=== PATIENT | male | born 1960 | race Caucasian/White ===

== ENCOUNTER 2016-08-04 12:40 | Inpatient (IN) | payer MEDICARE, OTHER ==
[2016-08-04] MEDS ORDERED: NS 0.9% 1000 ML* 1,000 ML IV ONE ×2 (13:24→15:32)
--- NOTE | 2016-08-04 14:04 | RAD ---
Indication: Confusion, pneumonia and CHF. Single frontal view of the chest performed at 1335 hours was reviewed. Comparison is made with previous exam dated October 27, 2015. Cardiomegaly is noted. No mediastinal shift is noted. Bibasilar atelectasis is noted. IMPRESSION: CARDIOMEGALY WITH LEFT BASILAR ATELECTASIS.
[2016-08-04 14:31] LABS: Hematocrit 39 % (42-52); Mean Corpuscular HGB Conc 33 g/dl (31-36); Mean Corpuscular Hemoglobin 31 pg (27-31); Mean Corpuscular Volume 94 fL (80-94); Mean Platelet Volume 8 um3 (7.4-10.4); Red Blood Count 4.14 10^6/ul (4.0-5.4); Red Cell Distribution Width 15 % (10.5-15); White Blood Count 11.5 10^3/ul (3.5-10.8)
[2016-08-04 14:44] LABS: Add Diff/Slide Review? Slide Review Added; Comments Flag Yes
[2016-08-04 14:49] LABS: Albumin 3.4 g/dL (3.2-5.2); BUN/Creatinine Ratio 40.8 (8-20); Calcium 8.8 mg/dL (8.6-10.3); EGFR African American 225.6 (>60); EGFR Non-African American 175.4 (>60); Globulin 2.7 g/dL (2-4); Magnesium 1.8 mg/dL (1.9-2.7); Potassium 4.1 mmol/L (3.5-5.0); Total Bilirubin 0.3 mg/dL (0.2-1.0); Total Protein 6.1 g/dL (6.4-8.9)
[2016-08-04 14:51] LABS: Troponin I 0.02 ng/mL (<0.04)
[2016-08-04 15:07] LABS: TSH (Thyroid Stimulating Horm) 0.84 mcIU/mL (0.34-5.60)
[2016-08-04] MEDS ORDERED: Iodixanol* (CONTRAST) 320 MG/ML 100 ML SDV IV ONE (15:26)
--- NOTE | 2016-08-04 15:46 | RAD ---
Confusion, history of brain tumor. Contrast: Administered 75.0 ml of VISAPAQUE 320 mgi/ml CT of the brain was performed without and with IV contrast. Comparison is made with previous exam dated May 28, 2016. Ventricular structures are midline. There is central and cortical atrophy noted. Encephalomalacia in the right occipital lobe is present unchanged from previous exam due to prior surgery. There is ex vacuo dilatation of the occipital horn of the right lateral ventricle is noted. Again noted at the margin of the right lateral ventricle is a hyperdense lesion which appears to be similar in size and extent to that seen on May 28, 2016. This may represent degenerative dystrophic calcification however mass is not totally excluded. Previously noted enhancement in the right posterior cingulate gyrus is not as prominent as on prior exam. Previously identified enhancement in the mesial temporal lobe is less conspicuous on the current exam. Brainstem and erickson are unremarkable. IMPRESSION: EX VACUO DILATATION OF THE RIGHT OCCIPITAL HORN OF THE LATERAL VENTRICLE. HYPERDENSE LESION IN THE LATERAL MARGIN OF THE LATERAL VENTRICLE IS UNCHANGED AND MAY REPRESENT DYSTROPHIC CALCIFICATIONS. SMALL HYPERDENSE FOCUS IN THE POSTERIOR SYLVIAN FISSURE IS SIMILAR TO THAT SEEN ON PREVIOUS EXAM. THE PREVIOUSLY DESCRIBED ENHANCEMENT OF THE POSTERIOR CINGULATE GYRUS IS NOT PROMINENT ON THE CURRENT EXAM. MILD ENHANCEMENT OF THE MESIAL TEMPORAL LOBE IS NOTED LEFT CONSPICUOUS ON THE CURRENT EXAM THAN ON PRIOR EXAM. OVERALL NO CHANGES NOTED SINCE PREVIOUS EXAM OF MAY 28, 2016.
[2016-08-04 15:56] LABS: Urine Bilirubin Negative (Negative); Urine Glucose 3+(>=500 mg/dL) (Negative); Urine Nitrite Negative (Negative)
--- NOTE | 2016-08-04 16:15 | ED ---
Kary Molina Anna, scribed for Cosme Neumann MD on 08/04/16 at 1333 . Altered Mental Status - HPI Summary HPI Summary: Patient is a 56 y/o male coming to [facility] presenting with intermittent AMS. According to his family, the patient has not slept in several nights. He has been experiencing hallucinations. He has short episodes of confusion at baseline , but over the last few days, he has been confused with only intermittent lucidity. He is experiencing frequent hallucinations. He incorrectly states the date is April 26. He states he is at [facility] and correctly states his birthday. He says he is in the ED today because of a coating. He sees things hanging from the ceiling. He later remembers that the month is July. He has had a BM every day, but his sister reports he appears more bloated than normal. Denies CP, back pain, abd pain, fever, chills, coughing, nausea, diarrhea, trouble with urination. He denies headache but has been grabbing his head. He has been asking to go to the bathroom frequently, but he is not producing more urine than normal. He experiences weakness at baseline, more in the left than the right. LEVEL 5 CAVEAT - UNABLE TO OBTAIN FULL HISTORY DUE TO ALTERED MENTAL STATUS. The patient is being treated with Avastin for his glioblastoma. He has been on Avastin for [address] Melgar has also ordered him Xanax, which he had for four days. No improvement was seen from the Xanax. Last night, he had Xanax at 0330. The patient was yelling out his parents names. He takes Lovenox at night. He has been on steroids for three years. He does not smoke. He has steroid-induced DM. He has had elevated HTN recently according to his visiting nurse. Denies HLD. No history of CVA or [place]. Hx is significant for PE and diverticulitis, both 10/2015. - History Of Current Complaint Chief Complaint: EDAltMentalStatus Stated Complaint: CONFUSED Hx Obtained From: Patient, Family/Legal Compliance Officer - Accompanied by family - Allergies/Home Medications Allergies/Adverse Reactions: Allergies Allergy/AdvReac Type Severity Reaction Status Date / Time No Known Allergies Allergy Verified 08/04/16 12:51 PMH/Surg Hx/FS Hx/Imm Hx Endocrine/Hematology History: Reports: Hx Diabetes - STEROID INDUCED Cardiovascular History: Denies: Hx Congestive Heart Failure, Hx Hypertension Respiratory History: Reports: Hx Pulmonary Embolism GI History: Reports: Hx Diverticulosis History: Reports: Hx Kidney Stones - 12 years ago Denies: Hx Dialysis, Hx Renal Disease Sensory History: Reports: Hx Contacts or Glasses, Hx Eye Injury - Foreign metallic object in left eye sockets, Hx Vision Problem Opthamlomology History: Reports: Hx Contacts or Glasses, Hx Eye Injury - Foreign metallic object in left eye sockets, Hx Vision Problem - Cancer History Cancer Type, Location and Year: GLIOBLASTOMA W/CHEMO & STEROID INDUCED DIABETES Hx Chemotherapy: Yes - Surgical History Surgery Procedure, Year, and Place: GLIOBLASTOMA. Foreign object IN LEFT EYE SOCKET Infectious Disease History: No Infectious Disease History: Denies: Traveled Outside the [place] in Last 30 Days - Family History Known Family History: Positive: Hypertension - Social History Lives: With Family Alcohol Use: None Hx Substance Use: No Substance Use Type: Reports: None Hx Tobacco Use: No Smoking Status (MU): Never Smoked Tobacco Review of Systems - ROS Summary Review of Systems Summary: LEVEL 5 CAVEAT - UNABLE TO OBTAIN FULL HISTORY DUE TO ALTERED MENTAL STATUS. Gastrointestinal: Other - bloated Positive: urgency Neurological: Other - AMS. Hallucinations. See HPI. Positive: Weakness - baseline All Other Systems Reviewed And Are Negative: No Physical Exam - Summary Physical Exam Summary: The patient is well-nourished in no acute distress and in no acute pain. He is confused. The skin is warm and dry and skin color reflects adequate perfusion. HEENT: The head is normocephalic and atraumatic. The pupils are equal and reactive. The conjunctivae are clear and without drainage. Nares are patent and without drainage. Mouth reveals moist mucous membranes and the throat is without erythema and exudate. The external ears are intact. The ear canals are patent and without drainage. The tympanic membranes are intact. Neck is supple with full range of motion and non-tender. There are no carotid bruits. There is no neck vein distension. Respiratory: Chest is non-tender. Lungs are clear to auscultation and breath sounds are symmetrical and equal. Cardiovascular: Heart is regular rate and rhythm. There is no murmur or rub auscultated. There is no peripheral edema and pulses are symmetrical and equal. Abdomen: The abdomen is soft and non-tender. There are normal bowel sounds heard in all four quadrants and there is no organomegaly palpated. Musculoskeletal: There is no back pain noted. Extremities are non-tender with full range of motion. There is good capillary refill. There is no peripheral edema or calf tenderness elicited. Neurological: Patient is alert and oriented to person and place. He is not oriented to time. Psychiatric: The patient has an appropriate affect and does not exhibit any anxiety or depression. Vital Signs On Initial Exam: Initial Vitals Temp Pulse Resp BP Pulse Ox 98.0 F 94 18 145/110 99 08/04/16 12:51 08/04/16 12:51 08/04/16 12:51 08/04/16 12:51 08/04/16 12:51 Diagnostics - Vital Signs Vital Signs Temp Pulse Resp BP Pulse Ox 08/04/16 12:51 98.0 F 94 18 145/110 99 - Laboratory Lab Results: Lab Results 08/04/16 08/04/16 08/04/16 Range/Units 14:10 14:10 14:10 WBC 11.5 H (3.5-10.8) 10^3/ul RBC 4.14 (4.0-5.4) 10^6/ul Hgb 13.0 L (14.0-18.0) g/dl Hct 39 L (42-52) % MCV 94 (80-94) fL MCH 31 (27-31) pg MCHC 33 (31-36) g/dl RDW 15 (10.5-15) % Plt Count 127 L (150-450) 10^3/ul MPV 8 (7.4-10.4) um3 Neut % (Auto) 87.5 H (38-83) % Lymph % (Auto) 6.6 L (25-47) % Moffat % (Auto) 5.5 (1-9) % Eos % (Auto) 0.1 (0-6) % Baso % (Auto) 0.3 (0-2) % Absolute Neuts (auto) 10.0 H (1.5-7.7) 10^3/ul Absolute Lymphs (auto) 0.8 L (1.0-4.8) 10^3/ul Absolute Monos (auto) 0.6 (0-0.8) 10^3/ul Absolute Eos (auto) 0 (0-0.6) 10^3/ul Absolute Basos (auto) 0 (0-0.2) 10^3/ul Absolute Nucleated RBC 0.01 10^3/ul Nucleated RBC % 0.1 INR (Anticoag Therapy) (0.89-1.11) APTT (26.0-36.3) seconds Sodium 137 (133-145) mmol/L Potassium 4.1 (3.5-5.0) mmol/L Chloride 102 (101-111) mmol/L Carbon Dioxide 27 (22-32) mmol/L Anion Gap 8 (2-11) mmol/L BUN 20 (6-24) mg/dL Creatinine 0.49 L (0.67-1.17) mg/dL Est GFR ( Amer) 225.6 (>60) Est GFR (Non-Af Amer) 175.4 (>60) BUN/Creatinine Ratio 40.8 H (8-20) Glucose 218 H (70-100) mg/dL Lactic Acid 2.2 H* (0.5-2.0) mmol/L Calcium 8.8 (8.6-10.3) mg/dL Magnesium 1.8 L (1.9-2.7) mg/dL Total Bilirubin 0.30 (0.2-1.0) mg/dL AST 20 (13-39) U/L ALT 53 H (7-52) U/L Alkaline Phosphatase 70 (34-104) U/L Total Creatine Kinase 23 (10-223) U/L Troponin I 0.02 (<0.04) ng/mL Total Protein 6.1 L (6.4-8.9) g/dL Albumin 3.4 (3.2-5.2) g/dL Globulin 2.7 (2-4) g/dL Albumin/Globulin Ratio 1.3 (1-3) TSH 0.84 (0.34-5.60) mcIU/mL Urine Color Urine Appearance Urine pH (5-9) Ur Specific Clare (1.010-1.030) Urine Protein (Negative) Urine Ketones (Negative) Urine Blood (Negative) Urine Nitrate (Negative) Urine Bilirubin (Negative) Urine Urobilinogen (Negative) Ur Leukocyte Esterase (Negative) Urine Glucose (Negative) 08/04/16 08/04/16 Range/Units 14:10 15:39 WBC (3.5-10.8) 10^3/ul RBC (4.0-5.4) 10^6/ul Hgb (14.0-18.0) g/dl Hct (42-52) % MCV (80-94) fL MCH (27-31) pg MCHC (31-36) g/dl RDW (10.5-15) % Plt Count (150-450) 10^3/ul MPV (7.4-10.4) um3 Neut % (Auto) (38-83) % Lymph % (Auto) (25-47) % Moffat % (Auto) (1-9) % Eos % (Auto) (0-6) % Baso % (Auto) (0-2) % Absolute Neuts (auto) (1.5-7.7) 10^3/ul Absolute Lymphs (auto) (1.0-4.8) 10^3/ul Absolute Monos (auto) (0-0.8) 10^3/ul Absolute Eos (auto) (0-0.6) 10^3/ul Absolute Basos (auto) (0-0.2) 10^3/ul Absolute Nucleated RBC 10^3/ul Nucleated RBC % INR (Anticoag Therapy) 0.94 (0.89-1.11) APTT 32.2 (26.0-36.3) seconds Sodium (133-145) mmol/L Potassium (3.5-5.0) mmol/L Chloride (101-111) mmol/L Carbon Dioxide (22-32) mmol/L Anion Gap (2-11) mmol/L BUN (6-24) mg/dL Creatinine (0.67-1.17) mg/dL Est GFR ( Amer) (>60) Est GFR (Non-Af Amer) (>60) BUN/Creatinine Ratio (8-20) Glucose (70-100) mg/dL Lactic Acid (0.5-2.0) mmol/L Calcium (8.6-10.3) mg/dL Magnesium (1.9-2.7) mg/dL Total Bilirubin (0.2-1.0) mg/dL AST (13-39) U/L ALT (7-52) U/L Alkaline Phosphatase (34-104) U/L Total Creatine Kinase (10-223) U/L Troponin I (<0.04) ng/mL Total Protein (6.4-8.9) g/dL Albumin (3.2-5.2) g/dL Globulin (2-4) g/dL Albumin/Globulin Ratio (1-3) TSH (0.34-5.60) mcIU/mL Urine Color Yellow Urine Appearance Clear Urine pH 5.0 (5-9) Ur Specific Clare 1.035 H (1.010-1.030) Urine Protein Negative (Negative) Urine Ketones Negative (Negative) Urine Blood Negative (Negative) Urine Nitrate Negative (Negative) Urine Bilirubin Negative (Negative) Urine Urobilinogen Negative (Negative) Ur Leukocyte Esterase Negative (Negative) Urine Glucose 3+(>=500 mg/dl) H (Negative) Result Diagrams: 08/04/16 14:10 08/04/16 14:10 Lab Statement: Any lab studies that have been ordered have been reviewed, and results considered in the medical decision making process. - Radiology CXR Xray Interpretation: Positive (See Comments) Radiology Interpretation Completed By: Radiologist - IMPRESSION: CARDIOMEGALY WITH LEFT BASILAR ATELECTASIS. - CT Brain CT CT Interpretation: No Acute Changes CT Interpretation Completed By: Radiologist - IMPRESSION: EX VACUO DILATATION OF THE RIGHT OCCIPITAL HORN OF THE LATERAL VENTRICLE. HYPERDENSE LESION IN THE LATERAL MARGIN OF THE LATERAL VENTRICLE IS UNCHANGED AND MAY REPRESENT DYSTROPHIC CALCIFICATIONS. SMALL HYPERDENSE FOCUS IN THE POSTERIOR SYLVIAN FISSURE IS SIMILAR TO THAT SEEN ON PREVIOUS EXAM. THE PREVIOUSLY DESCRIBED ENHANCEMENT OF THE POSTERIOR CINGULATE GYRUS IS NOT PROMINENT ON THE CURRENT EXAM. MILD ENHANCEMENT OF THE MESIAL TEMPORAL LOBE IS NOTED LEFT CONSPICUOUS ON THE CURRENT EXAM THAN ON PRIOR EXAM. OVERALL NO CHANGES NOTED SINCE PREVIOUS EXAM OF MAY 28, 2016. - EKG 1322 Cardiac Rate: NL - 78 bpm EKG Rhythm: Sinus Rhythm ST Segment: Non-Specific EKG Interpretation: A lot of artifact. No STEMI. Non-specific ST changes Re-Evaluation - Re-Evaluation First Eval Re-Evaluation Time: 15:55 Change: Unchanged Comment: Patient is still hallucinating. He occasionally falls asleep, but it is only very briefly. Discussed results of labs and brain CT with patient and family. Altered Mental Statu Course/Dx - Course Assessment/Plan: Patient presents with AMS, hallucinations,. Hx of glioblastoma. He takes steroids and blood thinners. CT reveals no bleed, no enlargement of tumor, or any shift in the brain. No evidence of UTI. No PNA. He is dehydrated by laboratory studies, elevated lactic acid and elevated BUN/ Creatinine ratio. Will consult hospitalist for admission. Diagnosis is AMS, hallucinations. This could be metabolic, drug-induced. - Diagnoses Differential Diagnosis/HQI/PQRI: Hypoglycemia, Intracranial Bleed, Medication Reaction, Metabolic Disorder, Seizure, Other - Drug-induced AMS, tumor, hydrocephalus, uti, dehydration Discharge Diagnoses: Altered mental status, Hallucinations, Dehydration - Provider Notifications Discussed Care Of Patient With: Dr. Mayorga (oncology) at 1354. She requests a CT with contrast. Dr. Mejias (hospitalist) at 1601. Accepts patient for admission. Discharge - Discharge Plan Condition: Stable Disposition: ADMITTED TO [facility] Referrals: Jero Melgar MD [Primary Care Provider] - The documentation as recorded by the Kary ross Anna accurately reflects the service I personally performed and the decisions made by , Cosme Neumann MD.
[2016-08-04] MEDS ORDERED: Dextrose 50% Syringe 50 ML* 25 GM/50 ML SYRINGE IV PUSH PRN (17:17)
[2016-08-04] MEDS ORDERED: Dexamethasone TAB* 4 MG PO ONE (18:01)
[2016-08-04] MEDS: Insulin LISPRO* 1 UNITS UNIT SUBCUT SCH (19:59)
[2016-08-04] MEDS ORDERED: Dexamethasone TAB* 1 MG PO SCH (21:00)
[2016-08-04] MEDS: Insulin GLARGINE(*) 1 UNITS UNIT SUBCUT SCH (22:22)
--- NOTE | 2016-08-04 22:29 | HP ---
HOSPITAL MEDICINE HISTORY AND PHYSICAL: DATE OF ADMISSION: 08/04/16 PRIMARY CARE PHYSICIAN: Dr. Jero Melgar. ONCOLOGIST: Dr. Roy. ATTENDING PHYSICIAN: Dr. Sumit Mejias* (dictation provided by Lauren Brown NP) . CHIEF COMPLAINT: Altered mental status. HISTORY OF PRESENT ILLNESS: Mr. Singh is a 56-year-old male with a past medical history of glioblastoma multiforme and diabetes, who presents to the hospital today out of concern for altered mental status. Mr. Singh provides some of the information, but this is also supported by his sister who is at the bedside. Per the report, Mr. Singh has had problems on and off with hallucinations for quite some time. For the most part, they had been short -lived; however, the past few days and culminating in last evening, he was so agitated and hallucinating that he was unable to get any sleep at all. He tells me that he was hallucinating that he was buried in the ground. He hallucinates small animals running around. His sister was concerned because he has been unable to sleep because of how severe the hallucinations are. She also notes that as of about a week ago, the patient was able to walk with a walker and stand-by assist x2 into the kitchen, but as of now, he is not even able to get up out of the bed by himself and is only able to stand and pivot in to the chair. They do note that there have been recent changes to his Decadron dosing. He had been on 2 mg in the morning and 4 mg at night, but now is on 2 mg twice daily. Efforts have been made over the course of the the patient's illness to keep his Decadron dose down as he does have very significant hyperglycemia. Other than these complaints, Mr. Singh and his sister state that he has been feeling well. He has had no fevers, no chills, no cough, no shortness of breath, no chest pain, no nausea, no abdominal pain, no diarrhea. He denies any dysuria. In the emergency room, Mr. Singh had labs that were essentially unremarkable. His lactic acid is very mildly elevated at 2.2. His urine shows no evidence of infection. His CT of the brain is unchanged from previous. He has no evidence of an infiltrate on the chest x-ray. PAST MEDICAL HISTORY: 1. Glioblastoma multiforme. 2. History of pulmonary embolism bilaterally in October 2015. 3. History of perforated diverticulitis with peritonitis, October 2015. 4. Hypertension. 5. History of type 2 diabetes, insulin dependent, with hyperglycemia exacerbated by Decadron use. 6. History of left eye foreign body. MEDICATIONS: 1. Avastin as directed. 2. Lispro insulin 10 units subcutaneously with meals as needed plus a sliding scale. 3. Amlodipine 5 mg p.o. daily. 4. Dexamethasone 2 mg p.o. b.i.d. 5. Lovenox 150 mg subcutaneously daily. 6. Lantus insulin 75 units subcutaneously daily. 7. Omeprazole 20 mg p.o. daily. ALLERGIES: No known drug allergies. FAMILY HISTORY: His parents are alive, in good health. He has no biological children. SOCIAL HISTORY: He is , though he lives with his parents at this time. No report of alcohol, tobacco, or drug use. His sister, Talya, is the healthcare proxy. REVIEW OF SYSTEMS: A 14-point review of systems was completed with Mr. Singh and all those not mentioned above were negative. PHYSICAL EXAMINATION GENERAL: Mr. Singh is lying in the bed. He is in no acute distress. VITAL SIGNS: Temperature 98.0, heart rate 73, respiratory rate 11, O2 saturation 96% on room air, blood pressure 164/95. LUNGS: Clear to auscultation bilaterally with no accessory muscle use and good aeration. HEART: S1, S2. No murmur, rub, or gallop and regular. ABDOMEN: Soft, nontender with bowel sounds positive x4. EXTREMITIES: No cyanosis or edema. NEURO: He is alert and oriented x3 during my first examination of him. He answered all my questions appropriately; however, in coming back into the room, I do notice at times that he was fretful and pulling out his gown and seemed disoriented. He is noted to move all extremities equally and follow all commands. There is no facial asymmetry or focal weakness. Extraocular movements are intact. Pupils equal and reactive. SKIN: Intact. DIAGNOSTIC STUDIES/LAB DATA: WBC 11.5, hemoglobin 13.0, hematocrit 39, platelet count 127. INR 0.94. Sodium 137, potassium 4.1, chloride 102, serum bicarbonate 27, BUN 20, creatinine 0.49, glucose 218, lactic acid 2.2. Urine shows no evidence of infection. CT brain is read as follows: "Ex-vacuo dilatation of the right occipital horn of the lateral ventricle, hyperdense lesion in the lateral margin of the lateral ventricle is unchanged, it may represent dystrophic calcifications. Small hyperdense focus in the posterior sylvian fissure is similar to that seen on previous exam. Previously described enhancement of the posterior cingulate gyrus is not as prominent on the current exam, mild enhancement of the mesial temporal lobe is noted, less conspicuous on the current exam than on prior exam overall. No changes noted since previous exam of 06/24/16." Chest x-ray shows cardiomegaly with left basilar atelectasis. ASSESSMENT AND PLAN: Mr. Singh is a 56-year-old male with a past medical history of glioblastoma multiforme and type 2 diabetes, which is insulin dependent with hyperglycemia secondary to steroid use, who presents today to the hospital with altered mental status and hallucinations. Our plans are for observation in the hospital for the followin. Altered mental status with hallucinations: Per the patient's sister, the patient has had changes in his titration of his steroid doses over time to try to control his hallucinations and mentation, but to balance this with control of his blood glucose. It seems that somewhat recently, although the sister was not quite clear when this was, the Decadron was decreased. My plan for tonight is to simply increase the Decadron to 4 mg at night and continue the 2 mg in the a.m. which was the last dose the patient was on and then defer this on to Oncology who can make adjustments that they feel are appropriate based on the patient's history. I do not see any other reason for his altered mental status. He has no evidence of infection. His lactic acid was very mildly elevated. He was given fluids in the emergency room, but he does not appear significantly dehydrated. I am doubtful that this is actually causing him any problem. He has no electrolyte abnormalities. His CT of the brain is unchanged. 2. Type 2 diabetes, insulin dependent: I am going up on the steroid dose and I am anticipating that the blood sugar will be more out of control. I am going to continue for now his home Lantus with lispro sliding scale 10 units with meals plus a sliding scale. Will be very mindful to increase this based on the blood glucoses going forward. 3. Hypertension: The patient's sister noticed that his blood pressure has been elevated at home and it is elevated to the 160s here. Plan to increase his amlodipine from 5 to 10 mg now. 4. History of pulmonary embolism: Plan to continue home Lovenox. 5. DVT prophylaxis with Lovenox. 6. Disposition to medical floor. 7. Code status is DNR and a form was completed with his sister. TIME SPENT: Approximately 60 minutes was spent on the admission of this patient , more than half time spent with the patient at the bedside reviewing the events leading up to this hospitalization, performing the physical examination, and reviewing the plan of care. LAUREN BROWN NP CC: Dr. Jero Melgar; Dr. Roy* [id number]/[facility] #: [id number] MTDMargy
[2016-08-04] MEDS: Enoxaparin(*) 150 MG/ML 1 ML SYRINGE SUBCUT SCH (22:39)
[2016-08-05] MEDS ORDERED: Insulin LISPRO* 1 UNITS UNIT SUBCUT SCH (07:30)
[2016-08-05] MEDS ORDERED: Dexamethasone TAB* 1 MG PO SCH (09:00)
[2016-08-05] MEDS: Insulin LISPRO* 1 UNITS UNIT SUBCUT SCH ×7 (09:23→21:04)
[2016-08-05] MEDS: amLODIPine TAB* 5 MG PO SCH (09:25)
[2016-08-05] MEDS: Omeprazole CAP* 20 MG PO SCH (09:25)
[2016-08-05] MEDS: Insulin GLARGINE(*) 1 UNITS UNIT SUBCUT SCH (21:03)
[2016-08-05] MEDS: Enoxaparin(*) 150 MG/ML 1 ML SYRINGE SUBCUT SCH (21:05)
[2016-08-06 06:19] LABS: Hematocrit 36 % (42-52); Hemoglobin 12.3 g/dl (14.0-18.0); Mean Corpuscular HGB Conc 34 g/dl (31-36); Mean Corpuscular Hemoglobin 32 pg (27-31); Mean Corpuscular Volume 93 fL (80-94); Mean Platelet Volume 7 um3 (7.4-10.4); Red Blood Count 3.86 10^6/ul (4.0-5.4); Red Cell Distribution Width 15 % (10.5-15); White Blood Count 9.8 10^3/ul (3.5-10.8)
[2016-08-06 06:33] LABS: Albumin 3.1 g/dL (3.2-5.2); BUN/Creatinine Ratio 35.8 (8-20); Calcium 8.6 mg/dL (8.6-10.3); EGFR African American 206.1 (>60); EGFR Non-African American 160.2 (>60); Globulin 2.4 g/dL (2-4); Potassium 3.4 mmol/L (3.5-5.0); Total Bilirubin 0.3 mg/dL (0.2-1.0); Total Protein 5.5 g/dL (6.4-8.9)
[2016-08-06] MEDS: Insulin LISPRO* 1 UNITS UNIT SUBCUT SCH ×7 (07:54→20:42)
--- NOTE | 2016-08-06 09:12 | EEG ---
ELECTROENCEPHALOGRAPHY: DATE OF STUDY: 08/05/2016. PATIENT OF: In hospital. HISTORY: This 56-year-old with glioblastoma multiforme, who presented yesterday with confusion and hallucinations, making him agitated and unable to sleep. MEDICATIONS: Include: 1. Dexamethasone. 2. Lovenox. 3. Lantus. 4. Omeprazole. There is a scar at O2, affecting placement of electrodes. INTERPRETATION: Background cerebral activity consists of admixed 5 to 7 Hz rhythm, which occasionally has some admixed delta slowing. Slowing appears occipitally more in the right hemisphere than the left. No clear-cut epileptiform potentials are noted. IMPRESSION: This awake EEG is abnormal because of diffuse slowing of background as well as slowing in the right occiput. No epileptiform potentials are noted. [id number]/[facility] #: [id number] MTDD
[2016-08-06] MEDS: Omeprazole CAP* 20 MG PO SCH (09:49)
[2016-08-06] MEDS: Dexamethasone TAB* 4 MG PO SCH (09:50)
[2016-08-06] MEDS: amLODIPine TAB* 5 MG PO SCH (09:50)
[2016-08-06] MEDS: Insulin GLARGINE(*) 1 UNITS UNIT SUBCUT SCH (20:42)
[2016-08-06] MEDS: Enoxaparin(*) 150 MG/ML 1 ML SYRINGE SUBCUT SCH (20:43)
[2016-08-07] MEDS: Insulin LISPRO* 1 UNITS UNIT SUBCUT SCH ×7 (08:08→21:13)
[2016-08-07] MEDS: Omeprazole CAP* 20 MG PO SCH (10:02)
[2016-08-07] MEDS: amLODIPine TAB* 5 MG PO SCH (10:02)
[2016-08-07] MEDS: Dexamethasone TAB* 4 MG PO SCH (10:02)
[2016-08-07] MEDS: Diltiazem TAB* 30 MG PO SCH ×2 (12:43→21:16)
[2016-08-07] MEDS: Insulin GLARGINE(*) 1 UNITS UNIT SUBCUT SCH (21:15)
[2016-08-07] MEDS: Enoxaparin(*) 150 MG/ML 1 ML SYRINGE SUBCUT SCH (21:16)
[2016-08-08] MEDS: Dexamethasone TAB* 4 MG PO SCH (08:46)
[2016-08-08] MEDS: Insulin LISPRO* 1 UNITS UNIT SUBCUT SCH ×6 (08:46→17:23)
[2016-08-08] MEDS: Diltiazem TAB* 30 MG PO SCH (08:46)
[2016-08-08] MEDS: Omeprazole CAP* 20 MG PO SCH (08:46)
[2016-08-08] MEDS: amLODIPine TAB* 5 MG PO SCH (08:46)
[2016-08-08 15:54] VITALS: BP 158/98
[2016-08-08] MEDS ORDERED: Acetaminophen TAB* 325 MG PO ONE (16:00)
--- NOTE | 2016-08-09 10:17 | DS ---
DISCHARGE SUMMARY: DATE OF ADMISSION: 08/04/16 DATE OF DISCHARGE: 08/08/16 DISCHARGE DIAGNOSES: 1. Glioblastoma multiforme: Stable by imaging, however, complicated by increased symptoms. 2. Hallucinations: [place] to be related to above diagnosis. 3. Pulmonary embolism: Stable on Lovenox. 4. Type 2 diabetes: Stable, but difficult to control with steroid use. DISCHARGE MEDICATIONS: 1. Dexamethasone 4 mg p.o. q.a.m. 2. Diltiazem 30 mg p.o. b.i.d. 3. Lantus 75 units subcu q. day. 4. Insulin lispro 10 units subcu b.i.d. p.r.n. hyperglycemia. 5. Omeprazole 20 mg p.o. q. day. 6. Lovenox 150 mg subcu q. day. 7. Amlodipine 5 mg p.o. q. day. 8. Avastin as per chemo. HOSPITAL COURSE: Please see admission note for full H and P; however, briefly, Mr. Singh is well known to our service due to his unfortunate diagnosis of progressive GBM. He has recently started therapy with Avastin due to progressive disease. He was brought to the ER by his primary care provider, his sister, due to concerns for altered mental status and hallucinations. Discussion in the ER was made with Oncology and plan was for admission with observation and evaluation for seizures versus need to elevate dexamethasone. During the admission, Mr. Singh had an EEG that did not show any epileptic waveforms. His brain CT was also stable in regards to his GBM. The sister very much wants to bring Mr. Singh home as long as he is safe and evaluation by PT feels that Mr. Singh is at his baseline. Concern for progressive symptoms related to GBM will be discussed as an outpatient. He will follow up with Dr. Roy on August 14 with lab work and plan to likely resume Avastin unless discussion indicates otherwise. He will resume all his home medications. Plan of care was reviewed at length with his sister as well as the patient, who is currently alert and oriented to self, location, and somewhat to time. The patient will be going home with extensive home care as well as Chris lift and other appropriate home care needs. TIME SPENT: Greater than 40 minutes, with greater than 50% [id number] counseling. CAREN TODD, RIPENING ROOM OPERATOR [id number]/[facility] [place] #: [id number] [facility]
== END 2016-08-08 17:40 | disposition home health service (06) | DRG 54 ==
LOC: ED 12:40 → MED 16:11 → OBSVTOIN 08-06 13:51
PROVIDERS: ADMIT Hospitalist; ATTEND Internal Medicine Hematology & Oncology
PROC: 4A00X4Z Measurement of Central Nervous Electrical Activity, External Approach (ICD-10-PCS; principal; 2016-08-05)
DX: C71.5 Malignant neoplasm of cerebral ventricle (principal); G93.6 Cerebral edema; I10 Essential (primary) hypertension; E11.65 Type 2 diabetes mellitus with hyperglycemia; Z66 Do not resuscitate; T38.0X5A Adverse effect of glucocorticoids and synthetic analogues, initial encounter; Z86.711 Personal history of pulmonary embolism; Z79.4 Long term (current) use of insulin; Z87.442 Personal history of urinary calculi; Z82.49 Family history of ischemic heart disease and other diseases of the circulatory system
CPT/HCPCS: 36415; 70470; 71010; 80053; 81003; 82550; 83605; 83735; 84443; 84484; 85025; 85610; 85730; 93005; 95819; 99232; 99239; A9270-GY; G0378; G8978-GP-CL; G8978-GP-CN; G8979-GP-CJ; G8979-GP-CK; J1642; J1650; Q9967

== ENCOUNTER 2016-09-08 01:19 | Inpatient (IN) | payer MEDICARE, OTHER ==
--- NOTE | 2016-09-08 01:42 | ED ---
Jes Molina Michael, scribed for Ermias Ray MD on 09/08/16 at 0136 . Altered Mental Status - HPI Summary HPI Summary: 56 y/o male was BIBA to the ED presenting with AMS and increasing hallucinations per EMS. He was admitted to the hospital one month ago for similar hallucination symptoms. The PMHx is significant for GBM. The HPI is limited due to level 5 caveat-AMS - History Of Current Complaint Chief Complaint: EDNeurologicalDeficit Stated Complaint: HALUSINATIONS Time Seen by Provider: 09/08/16 01:21 Hx Obtained From: Patient, Medical Records Hx From Patient Unobtainable Due To: Altered Mental Status - level 5 caveat Onset/Duration: Unknown Timing: Intermittent Severity Initially: Moderate Severity Currently: Moderate Aggravating Factor(s): Unknown Alleviating Factor(s): Unknown Associated Signs And Symptoms: Negative: Negative - hallucinations - Allergies/Home Medications Allergies/Adverse Reactions: Allergies Allergy/AdvReac Type Severity Reaction Status Date / Time No Known Allergies Allergy Verified 09/08/16 01:38 PMH/Surg Hx/FS Hx/Imm Hx Endocrine/Hematology History: Reports: Hx Diabetes - STEROID INDUCED Cardiovascular History: Reports: Hx Hypertension Denies: Hx Congestive Heart Failure Respiratory History: Reports: Hx Pulmonary Embolism GI History: Reports: Hx Diverticulosis History: Reports: Hx Kidney Stones - 12 years ago Denies: Hx Dialysis, Hx Renal Disease Sensory History: Reports: Hx Contacts or Glasses, Hx Eye Injury - Foreign metallic object in left eye sockets, Hx Vision Problem Opthamlomology History: Reports: Hx Contacts or Glasses, Hx Eye Injury - Foreign metallic object in left eye sockets, Hx Vision Problem Neurological History: Reports: Other Neuro Impairments/Disorders - Glioblastoma - Cancer History Cancer Type, Location and Year: GLIOBLASTOMA W/CHEMO & STEROID INDUCED DIABETES Hx Chemotherapy: Yes - Surgical History Surgery Procedure, Year, and Place: GLIOBLASTOMA. Foreign object IN LEFT EYE SOCKET Infectious Disease History: Denies: Hx Clostridium Difficile, Hx Hepatitis - Family History Known Family History: Positive: Hypertension - Social History Occupation: Disabled Lives: With Family Alcohol Use: None Hx Substance Use: No Substance Use Type: Reports: None Hx Tobacco Use: No Smoking Status (MU): Never Smoked Tobacco Review of Systems - ROS Summary Review of Systems Summary: HPI limited due to level 5 caveat Neurological: Other - AMS. hallucinations. All Other Systems Reviewed And Are Negative: No Physical Exam Triage Information Reviewed: Yes Vital Signs On Initial Exam: Initial Vitals Temp Pulse Resp BP Pulse Ox 97.7 F 98 15 153/101 97 09/08/16 01:27 09/08/16 01:27 09/08/16 01:27 09/08/16 01:27 09/08/16 01:27 Vital Signs Reviewed: Yes Completion Of Physical Exam Limited Due To: Altered Mental Status Appearance: Positive: No Pain Distress, Ill-Appearing Skin: Positive: Warm Head/Face: Positive: Normal Head/Face Inspection Eyes: Positive: EMERITA ENT: Positive: Hearing grossly normal Neck: Positive: Supple Respiratory/Lung Sounds: Positive: Breath Sounds Present Cardiovascular: Positive: RRR Abdomen Description: Positive: Nontender, Soft Musculoskeletal: Positive: Strength/ROM Intact Psychiatric: Positive: Anxious Diagnostics - Vital Signs Vital Signs Temp Pulse Resp BP Pulse Ox 09/08/16 01:27 97.7 F 98 15 153/101 97 - Laboratory Result Diagrams: 09/08/16 02:15 09/08/16 02:15 Lab Statement: Any lab studies that have been ordered have been reviewed, and results considered in the medical decision making process. - CT Brain CT CT Interpretation: Positive (See Comments) CT Interpretation Completed By: Radiologist - There iis an old right temporoparietal occipital infarct with dystrophic calcium. Advanced chronic white matter changes. No visible acute infarct. No hemorrhage. Right parietal craniotomy. Osseous structures otherwise intact. Altered Mental Statu Course/Dx - Course Course Of Treatment: discussed pt care with Dr. Roy at 0127-will do workup and admit the pt. discussed with Dr. Sherman at 0135 for admission of patient. - Diagnoses Discharge Diagnoses: Glioblastoma multiforme of brain Discharge - Discharge Plan Condition: Guarded Disposition: ADMITTED TO [facility] documentation as recorded by the Jes ross Michael accurately reflects the service I personally performed and the decisions made by me, Ermias Ray MD.
[2016-09-08 01:49] LABS: Urine Bilirubin Negative (Negative); Urine Glucose 3+(>=500 mg/dL) (Negative); Urine Nitrite Negative (Negative)
--- NOTE | 2016-09-08 01:57 | HP ---
H&P (Free Text) History and Physical: PCP: Maci Melgar MD Oncology: Kathy Roy MD Date/Time of Evaluation: 09/08/2016 0150 CC: hallucinations HPI: Mr Singh is a 56YO male on treatment for glioblastoma multiforme [place] [facility] [place] for similar symptoms of increased hallucinations. He has had poor quality and quantity of sleep x2 nights and began hallucinating this afternoon. Mr Singh is difficult to obtain a history from [facility] tangentiality and paranoia. His sister is present and relates that he has slept poorly for the last 2 nights and began hallucinating again this afternoon, gradually worsening to the point of incoherent screaming "for hours". She called Dr Roy's office who advised giving him alprazolam, but after 2 doses and no improvement they decided to bring him [place] [facility] [place]. Currently he is calm and denies pain or other issues. He is perseverant regarding his bowels, but his sister states that they move daily. Evaluation is notable for a CT brain WO without acute finding. Vitals are stable. Labs are reasonably normal. I discussed options for attempting to help him sleep and remain calm. As the alprazolam had no effect, I offered an anti- psychotic to help sedate and suppress hallucinations, but she stated she would rather try levetiracetam as he was placed on it prophylactically to prevent seizures, but was discontinued ~1year ago 2nd to making him too drowsy as he never developed seizures. As such, we will try this and see how well it works. PMedHx glioblastoma multiforme DM2, steroid induced pulmonary embolism October 2015 perforated diverticulitis October 2015 HTN metal foreign body OS Ambulatory Orders Nursing to reconcile. Insulin Glargine [Lantus Solostar] 70 units SUBCUT DAILY 10/27/15 Insulin Lispro [Humalog] 10 unit SC BID PRN 05/28/16 Bevacizumab* [Avastin*] SEE INSTRUCTIONS 08/04/16 Enoxaparin Sodium [Lovenox] 150 mg SC DAILY 08/04/16 Omeprazole [Prilosec] 20 mg PO DAILY 08/04/16 amLODIPine TAB* [Norvasc 5 mg TAB*] 10 mg PO DAILY 08/04/16 Dexamethasone TAB* [Decadron TAB*] 4 mg PO QAM tab 08/08/16 Allergies No Known Allergies Allergy (Verified 09/08/16 01:38) SocHx: no tobacco, alcohol, or recreational drugs; , but lives with his parents; DNR code status FamHx: Parents are alive & healthy. ROS: as above, otherwise reviewed and all were negative Constitutional: NAD, normally developed, obese white male vitals: Vital Signs Temp 36.5 C 09/08/16 01:27 Pulse 98 09/08/16 01:27 Resp 15 09/08/16 01:27 BP 153/101 09/08/16 01:27 Pulse Ox 97 09/08/16 01:27 Intake & Output 09/07/16 09/07/16 09/08/16 11:59 23:59 11:59 Weight 115.666 kg HEENM: atraumatic; sclera/conjunctiva: non-icteric; hearing: clinically intact: voice: hoarse from screaming; oropharynx: clear, mucosa moist Neck: soft tissue: non-tender; thyroid: normal Pulmonary: clear to auscultation bilaterally, good aeration, no accessory muscle use CV: RR/RR, normal S1S2, no carotid bruit, no jugular venous distention, 2+ B DP/ PT, no edema Abdominal: soft, non-distended, non-tender, no rebound/guarding/rigidity, normoactive bowel sounds, no hepatosplenomegaly or masses, no costovertebral angle tenderness Musculoskeletal: general: grossly intact; gait: ambulates with a walker & 2person assist at home Integumental: diffuse bruising 2nd combination of enoxaparin & steroids Psychiatric orientation: AA&O to PPS affect: calm mood: cooperative eye contact: poor content: unreliable responses: timely, tangential, perseverant insight: poor to fair Testing: Lab Results 09/08/16 09/08/16 09/08/16 Range/Units 01:40 02:15 02:15 WBC 11.6 H (3.5-10.8) 10^3/ul RBC 3.92 L (4.0-5.4) 10^6/ul Hgb 12.2 L (14.0-18.0) g/dl Hct 37 L (42-52) % MCV 93 (80-94) fL MCH 31 (27-31) pg MCHC 33 (31-36) g/dl RDW 15 (10.5-15) % Plt Count 150 (150-450) 10^3/ul MPV 7 L (7.4-10.4) um3 Neut % (Auto) 90.6 H (38-83) % Lymph % (Auto) 4.9 L (25-47) % [place] % (Auto) 3.4 (1-9) % Eos % (Auto) 0.1 (0-6) % Baso % (Auto) 1.0 (0-2) % Absolute Neuts (auto) 10.5 H (1.5-7.7) 10^3/ul Absolute Lymphs (auto) 0.6 L (1.0-4.8) 10^3/ul Absolute Monos (auto) 0.4 (0-0.8) 10^3/ul Absolute Eos (auto) 0 (0-0.6) 10^3/ul Absolute Basos (auto) 0.1 (0-0.2) 10^3/ul Absolute Nucleated RBC 0.03 10^3/ul Nucleated RBC % 0.2 INR (Anticoag Therapy) 0.96 (0.89-1.11) Sodium (133-145) mmol/L Potassium (3.5-5.0) mmol/L Chloride (101-111) mmol/L Carbon Dioxide (22-32) mmol/L Anion Gap (2-11) mmol/L BUN (6-24) mg/dL Creatinine (0.67-1.17) mg/dL Est GFR ( Amer) (>60) Est GFR (Non-Af Amer) (>60) BUN/Creatinine Ratio (8-20) Glucose (70-100) mg/dL Lactic Acid (0.5-2.0) mmol/L Calcium (8.6-10.3) mg/dL Magnesium (1.9-2.7) mg/dL Total Bilirubin (0.2-1.0) mg/dL AST (13-39) U/L ALT (7-52) U/L Alkaline Phosphatase (34-104) U/L Total Protein (6.4-8.9) g/dL Albumin (3.2-5.2) g/dL Globulin (2-4) g/dL Albumin/Globulin Ratio (1-3) Urine Color Yellow Urine Appearance Clear Urine pH 6.0 (5-9) Ur Specific [place] 1.018 (1.010-1.030) Urine Protein Negative (Negative) Urine Ketones Trace H (Negative) Urine Blood Negative (Negative) Urine Nitrate Negative (Negative) Urine Bilirubin Negative (Negative) Urine Urobilinogen Negative (Negative) Ur Leukocyte Esterase Negative (Negative) Urine Glucose 3+(>=500 mg/dl) H (Negative) 09/08/16 09/08/16 Range/Units 02:15 02:15 WBC (3.5-10.8) 10^3/ul RBC (4.0-5.4) 10^6/ul Hgb (14.0-18.0) g/dl Hct (42-52) % MCV (80-94) fL MCH (27-31) pg MCHC (31-36) g/dl RDW (10.5-15) % Plt Count (150-450) 10^3/ul MPV (7.4-10.4) um3 Neut % (Auto) (38-83) % Lymph % (Auto) (25-47) % [place] % (Auto) (1-9) % Eos % (Auto) (0-6) % Baso % (Auto) (0-2) % Absolute Neuts (auto) (1.5-7.7) 10^3/ul Absolute Lymphs (auto) (1.0-4.8) 10^3/ul Absolute Monos (auto) (0-0.8) 10^3/ul Absolute Eos (auto) (0-0.6) 10^3/ul Absolute Basos (auto) (0-0.2) 10^3/ul Absolute Nucleated RBC 10^3/ul Nucleated RBC % INR (Anticoag Therapy) (0.89-1.11) Sodium 136 (133-145) mmol/L Potassium 3.9 (3.5-5.0) mmol/L Chloride 103 (101-111) mmol/L Carbon Dioxide 28 (22-32) mmol/L Anion Gap 5 (2-11) mmol/L BUN 14 (6-24) mg/dL Creatinine 0.60 L (0.67-1.17) mg/dL Est GFR ( Amer) 178.6 (>60) Est GFR (Non-Af Amer) 138.9 (>60) BUN/Creatinine Ratio 23.3 H (8-20) Glucose 264 H (70-100) mg/dL Lactic Acid 0.4 L (0.5-2.0) mmol/L Calcium 8.8 (8.6-10.3) mg/dL Magnesium 1.8 L (1.9-2.7) mg/dL Total Bilirubin 0.40 (0.2-1.0) mg/dL AST 28 (13-39) U/L ALT 70 H (7-52) U/L Alkaline Phosphatase 80 (34-104) U/L Total Protein 6.4 (6.4-8.9) g/dL Albumin 3.5 (3.2-5.2) g/dL Globulin 2.9 (2-4) g/dL Albumin/Globulin Ratio 1.2 (1-3) Urine Color Urine Appearance Urine pH (5-9) Ur Specific [place] (1.010-1.030) Urine Protein (Negative) Urine Ketones (Negative) Urine Blood (Negative) Urine Nitrate (Negative) Urine Bilirubin (Negative) Urine Urobilinogen (Negative) Ur Leukocyte Esterase (Negative) Urine Glucose (Negative) CT brain WO, personally reviewed: no acute finding noted, R occipital encephalomalacia underlying lise hole; report pending Impression: 56M on treatment for glioblastoma multiforme presents with increased hallucinations DIAGNOSIS & PLAN Primary hallucinations : PO levetiracetam 500mg x1 tonight, monitor for effect : consider haloperidol vs ziprazadone, if unsuccessful glioblastoma multiforme : management per oncology : continue dexamethasone Secondary DM2 : insulin carb ratio diet : basal/bolus/correctional dosing HX pulmonary embolism October 2015 : continue enoxaparin SQ perforated diverticulitis October 2015 : no acute issues HTN : continue amlodipine GERD : continue omeprazole Admission Rational: observation for increased hallucinations in setting of GBM w / steroids DVTp: enoxaparin Code Status: DNR HCP: sisterTalya
[2016-09-08] MEDS ORDERED: Acetaminophen TAB* 325 MG PO PRN (02:20)
[2016-09-08 02:38] LABS: Comments Flag Yes; Hematocrit 37 % (42-52); Hemoglobin 12.2 g/dl (14.0-18.0); Mean Corpuscular HGB Conc 33 g/dl (31-36); Mean Corpuscular Hemoglobin 31 pg (27-31); Mean Corpuscular Volume 93 fL (80-94); Mean Platelet Volume 7 um3 (7.4-10.4); Red Blood Count 3.92 10^6/ul (4.0-5.4); Red Cell Distribution Width 15 % (10.5-15); White Blood Count 11.6 10^3/ul (3.5-10.8)
[2016-09-08 02:39] LABS: Add Diff/Slide Review? Slide Review Added
[2016-09-08] MEDS ORDERED: levETIRAcetam TAB* 500 MG PO ONE (02:42)
[2016-09-08 02:48] LABS: Albumin 3.5 g/dL (3.2-5.2); BUN/Creatinine Ratio 23.3 (8-20); Calcium 8.8 mg/dL (8.6-10.3); EGFR African American 178.6 (>60); EGFR Non-African American 138.9 (>60); Globulin 2.9 g/dL (2-4); Magnesium 1.8 mg/dL (1.9-2.7); Potassium 3.9 mmol/L (3.5-5.0); Total Bilirubin 0.4 mg/dL (0.2-1.0); Total Protein 6.4 g/dL (6.4-8.9)
[2016-09-08] MEDS: Omeprazole CAP* 20 MG PO SCH (05:28)
--- NOTE | 2016-09-08 07:45 | RAD ---
HISTORY: Altered mental status COMPARISONS: August 04, 2016 TECHNIQUE: Multiple contiguous axial CT scans were obtained of the head without intravenous contrast. FINDINGS: The study is limited by patient motion artifact. HEMORRHAGE/INFARCT: There is no hemorrhage or acute infarct. MASSES/SHIFT: There is no mass or shift. EXTRA-AXIAL SPACES: There are no extra-axial fluid collections. SULCI AND VENTRICLES: There is ex vacuo dilatation of the right lateral ventricle. CEREBRUM: There is extensive right temporoparietal occipital encephalomalacia. There is high attenuation consistent with dystrophic calcification of the right temporal lobe stable from the previous examination. BRAINSTEM: There are no focal parenchymal abnormalities. CEREBELLUM: There are no focal parenchymal abnormalities. VESSELS: The vessels are grossly normal. PARANASAL SINUSES: The paranasal sinuses are clear. ORBITS: The orbits are unremarkable. BONES AND SOFT TISSUE: There is postsurgical change to the right parietal skull. OTHER: None IMPRESSION: NO ACUTE INTRACRANIAL PATHOLOGY. STABLE DYSTROPHIC CALCIFICATION WITH CHRONIC TREATMENT EFFECT RELATED CHANGES.
[2016-09-08] MEDS: Insulin LISPRO* 1 UNITS UNIT SUBCUT SCH ×8 (08:40→21:00)
[2016-09-08] MEDS: Enoxaparin(*) 150 MG/ML 1 ML SYRINGE SUBCUT SCH (08:51)
[2016-09-08] MEDS: Insulin GLARGINE(*) 1 UNITS UNIT SUBCUT SCH (08:51)
[2016-09-08] MEDS: Docusate CAP* 100 MG PO SCH ×2 (12:13→21:01)
[2016-09-08] MEDS: amLODIPine TAB* 5 MG PO SCH (12:14)
[2016-09-08] MEDS: Dexamethasone TAB* 4 MG PO SCH (12:14)
[2016-09-08] MEDS: Metoprolol Succinate XL TAB* 25 MG PO SCH (12:14)
[2016-09-09] MEDS: Omeprazole CAP* 20 MG PO SCH (05:39)
[2016-09-09 06:38] LABS: Hematocrit 35 % (42-52); Hemoglobin 11.8 g/dl (14.0-18.0); Mean Corpuscular HGB Conc 34 g/dl (31-36); Mean Corpuscular Hemoglobin 32 pg (27-31); Mean Corpuscular Volume 94 fL (80-94); Mean Platelet Volume 7 um3 (7.4-10.4); Red Blood Count 3.69 10^6/ul (4.0-5.4); Red Cell Distribution Width 15 % (10.5-15); White Blood Count 10.1 10^3/ul (3.5-10.8)
[2016-09-09 06:54] LABS: BUN/Creatinine Ratio 23.2 (8-20); Calcium 8.6 mg/dL (8.6-10.3); EGFR Non-African American 118.2 (>60); Potassium 3.9 mmol/L (3.5-5.0)
[2016-09-09] MEDS ORDERED: Iodixanol* (CONTRAST) 320 MG/ML 100 ML SDV IV ONE (09:03)
[2016-09-09] MEDS: Insulin GLARGINE(*) 1 UNITS UNIT SUBCUT SCH (09:27)
[2016-09-09] MEDS: Dexamethasone TAB* 4 MG PO SCH (09:28)
[2016-09-09] MEDS: Insulin LISPRO* 1 UNITS UNIT SUBCUT SCH ×8 (09:28→21:53)
[2016-09-09] MEDS: Docusate CAP* 100 MG PO SCH ×2 (09:28→21:45)
[2016-09-09] MEDS: Metoprolol Succinate XL TAB* 25 MG PO SCH (09:29)
[2016-09-09] MEDS: amLODIPine TAB* 5 MG PO SCH (09:29)
[2016-09-09] MEDS: Enoxaparin(*) 150 MG/ML 1 ML SYRINGE SUBCUT SCH (10:03)
--- NOTE | 2016-09-09 10:07 | PN ---
Progress Note - Progress Note SOAP: Subjective: []Stable today. Conversational but still with delirium, discussed being at home and pictures on the wall. Asked directly oriented to [facility] but also thought he may be home. Oriented to RN to time, I did not ask. No pain. Very weak. Acetaminophen (Tylenol Tab*) 650 mg PO Q6H PRN PRN Reason: FEVER/PAIN Amlodipine Besylate (Norvasc Tab*) 10 mg PO DAILY [facility] Last Admin: 09/09/16 09:29 Dose: 10 mg Dexamethasone (Decadron Tab*) 4 mg PO QAM [facility] Last Admin: 09/09/16 09:28 Dose: 4 mg Docusate Sodium (Colace Cap*) 200 mg PO BID [facility] Last Admin: 09/09/16 09:28 Dose: 200 mg Enoxaparin Sodium (Lovenox(*)) 150 mg SUBCUT DAILY [facility] Last Admin: 09/08/16 08:51 Dose: 150 mg Insulin Glargine (Lantus(*)) 70 units SUBCUT DAILY [facility] Last Admin: 09/09/16 09:27 Dose: 70 units Insulin Human Lispro (Humalog*) 0 units SUBCUT AC [facility] PRN Reason: Protocol Last Admin: 09/09/16 09:51 Dose: 4 units Insulin Human Lispro (Humalog*) 0 units SUBCUT ACHS [facility] PRN Reason: Protocol Last Admin: 09/09/16 09:28 Dose: 9 units Metoprolol Succinate (Toprol Xl Tab*) 25 mg PO DAILY [facility] Last Admin: 09/09/16 09:29 Dose: 25 mg Omeprazole (Prilosec Cap*) 20 mg PO DAILY@0600 [facility] Last Admin: 09/09/16 05:39 Dose: 20 mg Objective: [] Vital Signs Temp Pulse Resp BP Pulse Ox 97.5 F 71 14 144/76 98 09/09/16 08:18 09/09/16 08:18 09/09/16 08:18 09/09/16 08:18 09/09/16 08:18 HEENT - no thruch, cushnoid. No LAD CTA RRR, S1S2 ABD - good BS, obese, NT, ND Ext tr edema Neuro- poor vision left, very weak but moving all 4 extremities, following commands. skin - back red per RN, not inspected. Assessment: []56 year old GBM on salvage therapy with acute onset delirium. Ddx: disease progression, medication effect, seizure, infection not likely. Plan: []1. CT head with IVC today and EEG pending. 2. For infection, check CXR 3. Will continue current meds, haldol for confusion if needed. No ativan and now narcotics 4. Continue carb count and Insulin coverage.
--- NOTE | 2016-09-09 11:29 | RAD ---
HISTORY: GBM, rule out progression COMPARISONS: Head CT dated September 08, 2016, head CT with contrast dated August 04, 2016 TECHNIQUE: Multiple contiguous axial CT scans were obtained of the head with and without, May 28, 2016 intravenous contrast. FINDINGS: HEMORRHAGE/INFARCT: There is no hemorrhage or acute infarct. MASSES/SHIFT: There is no mass or shift. EXTRA-AXIAL SPACES: There are no extra-axial fluid collections. SULCI AND VENTRICLES: There is ex vacuo dilatation of the right lateral ventricle CEREBRUM: Again noted is hypoattenuation of the periventricular and subcortical white matter consistent with treatment effect. There is encephalomalacia of the right parietotemporal region. There is minimal residual enhancement of the posterior cingulate gyrus on the right, decreased from previous examinations. An area of high attenuation noted along the margin of the right lateral ventricle has also decreased in size. BRAINSTEM: There are no focal parenchymal abnormalities. CEREBELLUM: There are no focal parenchymal abnormalities. VESSELS: The vessels are grossly normal. PARANASAL SINUSES: The paranasal sinuses are clear. ORBITS: The orbits are unremarkable. BONES AND SOFT TISSUE: No bone or soft tissue abnormalities are noted. OTHER: None IMPRESSION: 1. THERE IS MINIMAL RESIDUAL ENHANCEMENT OF THE CINGULATE GYRUS POSTERIORLY ON THE RIGHT, DECREASED FROM THE PREVIOUS EXAMINATION. 2. AGAIN NOTED IS HIGH ATTENUATION MATERIAL ALONG THE MARGIN OF THE RIGHT LATERAL VENTRICLE. THIS HAS DECREASED IN SIZE FROM PREVIOUS EXAMINATIONS. WHILE THIS MAY REPRESENT DYSTROPHIC CALCIFICATION, GIVEN THE CHANGE IN SIZE OVER TIME, THIS PRESUMABLY REFLECTS DENSELY CELLULAR/PARTIALLY CALCIFIED TUMOR.
--- NOTE | 2016-09-09 12:21 | RAD ---
HISTORY: Association's, glioblastoma, infection COMPARISONS: August 04, 2016 VIEWS: 2: Frontal and lateral views of the chest. FINDINGS: CARDIOMEDIASTINAL SILHOUETTE: The cardiomediastinal silhouette is normal. CECILIA: The cecilia are normal. PLEURA: The costophrenic angles are sharp. No pleural abnormalities are noted. LUNG PARENCHYMA: The lung volumes are low. Accounting for the phase of respiration. The lungs are clear. ABDOMEN: The upper abdomen is clear. There is no subphrenic gas. BONES AND SOFT TISSUES: No bone or soft tissue abnormalities are noted. OTHER: There is a central port from a right subclavian approach with tip overlying the superior vena cava. IMPRESSION: LOW LUNG VOLUMES.
--- NOTE | 2016-09-10 04:17 | EEG ---
ELECTROENCEPHALOGRAPHY: DATE OF STUDY: 09/09/16 LOCATION: The patient is an inpatient. ORDERING PHYSICIAN: Dr. Roy. CLINICAL PROBLEM: This is a 56-year-old man with a history of glioblastoma multiforme who was admit elisha for increased hallucinations. He has not been sleeping well for the past couple of nights. He was admitted yesterday and hallucinations started that afternoon. They worsened to the point, where he was incoherent and screaming for hours per the patient's sister. EEG was requested to evaluate for epileptiform abnormalities. MEDICATIONS: 1. Tylenol. 2. Prilosec. 3. Toprol. 4. Lantus. 5. Lovenox. 6. Colace. 7. Decadron. 8. Humalog. 9. Norvasc. REPORT: The most notable feature of the interictal background was the presence of an interhemispher ic asymmetry. Over both hemispheres, there was appropriate organization with clearly defined anteri or to posterior voltage and frequency gradients. Over the right hemisphere, however, there was inte rmittent, polymorphic slowing in the right hemisphere and continuous polymorphic delta and theta ran ge slowing in the right parietal occipital region, maximal at P4 and O2. Over the left hemisphere, there was a defined posterior dominant rhythm of 9 Hz, which showed reactivity. The posterior domin ant rhythm was evident over the right hemisphere as well but was approximately 1 Hz slower at about 8 Hz. Anteriorly, there was an expected pattern of lower voltage, irregular, mixed faster frequenci es. Attenuation of the occipital rhythm accompanied drowsiness, but there were no well- developed sleep spindles to indicate the transition to stage 2 sleep. Throughout the recording, there were no epileptiform discharges. The patient did not have any episo fran of hallucinations during this EEG. CLINICAL IMPRESSION: This is an abnormal waking and drowsy EEG due to the presence of intermittent slowing affecting the entire right hemisphere and more focal continuous slowing in the right parieta l occipital region. These findings are suggestive of underlying neuronal dysfunction in the right h emisphere, maximal in the parietal occipital region. There are no epileptiform abnormalities. The patient did not have any episodes of hallucinations during this recording. [id number]/[facility] #: [id number]
[2016-09-10] MEDS: Omeprazole CAP* 20 MG PO SCH (05:38)
[2016-09-10 05:59] LABS: Hematocrit 34 % (42-52); Hemoglobin 11.6 g/dl (14.0-18.0); Mean Corpuscular HGB Conc 34 g/dl (31-36); Mean Corpuscular Hemoglobin 32 pg (27-31); Mean Corpuscular Volume 93 fL (80-94); Mean Platelet Volume 7 um3 (7.4-10.4); Red Blood Count 3.63 10^6/ul (4.0-5.4); Red Cell Distribution Width 15 % (10.5-15); White Blood Count 9.7 10^3/ul (3.5-10.8)
[2016-09-10 06:09] LABS: BUN/Creatinine Ratio 40.4 (8-20); Calcium 8.5 mg/dL (8.6-10.3); EGFR African American 210.7 (>60); EGFR Non-African American 163.8 (>60); Potassium 3.4 mmol/L (3.5-5.0)
[2016-09-10 08:34] VITALS: BP 140/75
[2016-09-10] MEDS: Insulin GLARGINE(*) 1 UNITS UNIT SUBCUT SCH (08:57)
[2016-09-10] MEDS: Docusate CAP* 100 MG PO SCH (09:02)
[2016-09-10] MEDS: Metoprolol Succinate XL TAB* 25 MG PO SCH (09:02)
[2016-09-10] MEDS: Dexamethasone TAB* 4 MG PO SCH (09:02)
[2016-09-10] MEDS: amLODIPine TAB* 5 MG PO SCH (09:02)
[2016-09-10] MEDS: Insulin LISPRO* 1 UNITS UNIT SUBCUT SCH ×2 (09:07→10:13)
[2016-09-10] MEDS: Enoxaparin(*) 150 MG/ML 1 ML SYRINGE SUBCUT SCH (09:20)
== END 2016-09-10 12:00 | disposition home or self-care (01) | DRG 55 ==
LOC: ED 01:19 → MED 01:55 → OBSVTOIN 09-09 10:08
PROVIDERS: ADMIT Hospitalist; ATTEND Internal Medicine Hematology & Oncology
PROC: 4A00X4Z Measurement of Central Nervous Electrical Activity, External Approach (ICD-10-PCS; principal; 2016-09-09)
DX: C71.9 Malignant neoplasm of brain, unspecified (principal); I10 Essential (primary) hypertension; R44.3 Hallucinations, unspecified; E09.9 Drug or chemical induced diabetes mellitus without complications; T38.0X5A Adverse effect of glucocorticoids and synthetic analogues, initial encounter; K57.90 Diverticulosis of intestine, part unspecified, without perforation or abscess without bleeding; Z66 Do not resuscitate; E66.9 Obesity, unspecified; K21.9 Gastro-esophageal reflux disease without esophagitis; Z86.711 Personal history of pulmonary embolism; Z87.442 Personal history of urinary calculi; Z92.21 Personal history of antineoplastic chemotherapy; Z68.36 Body mass index [BMI] 36.0-36.9, adult; Z82.49 Family history of ischemic heart disease and other diseases of the circulatory system
CPT/HCPCS: 36415; 70450; 70470; 71020; 80048; 80053; 81003; 83605; 83735; 85025; 85610; 95816; 99232; A9270-GY; G0378; J1642; J1650; Q9967